=== PATIENT | male | born 1985 | race Asian ===

== ENCOUNTER 2020-03-09 08:52 | Emergency (ER) | payer BC ==
[~2020-03-09] VITALS: Ht 175.3 cm; Wt 89.8 kg
[~2020-03-09 08:52] MED LIST: COL100 PO; NORCO1 TA1 PO
[2020-03-09 08:59] VITALS: Ht 175.3 cm; Wt 89.8 kg
[2020-03-09 10:06] LABS: BASOPHIL % 0.3 % (0-2); CALCIUM 9.2 mg/dL (8.5-10.1); CARBON DIOXIDE 31.3 mmol/L (21-32); CHLORIDE SERUM 103 mmol/L (98-107); CREATININE SERUM 1.1 mg/dL (0.7-1.3); GFR1 > 60 mL/min; GLUCOSE SERUM 85 mg/dL (74-106); PLATELET COUNT 263 x10^3mcL (130-400); POTASSIUM SERUM 3.8 mmol/L (3.5-5.1); RED CELL DISTRIBUTION WIDTH 13.1 % (11.5-14.5); SODIUM SERUM 138 mmol/L (136-145)
[2020-03-09 10:10] LABS: ALBUMIN 3.7 g/dL (3.4-5.0); ALKALINE PHOSPHATASE 93 U/L (46-116); ALT/SGPT 45 U/L (16-63); AST/SGOT 24 U/L (15-37); BILIRUBIN TOTAL 0.9 mg/dL (0.20-1.00); TOTAL PROTEIN, SERUM 7.6 g/dL (6.4-8.2)
[2020-03-09 10:18] LABS: microscopic required? NO
[2020-03-09 10:25] LABS: UA SPECIFIC GRAVITY <=1.005 (1.005-1.035); urine erythrocyte NEGATIVE (NEGATIVE)
[2020-03-09 11:32] VITALS: BP 117/72
== END 2020-03-09 11:32 | disposition home or self-care (01) ==
LOC: ED 08:52
PROVIDERS: Emergency Medicine
DX: L03.317 Cellulitis of buttock (principal); Z88.6 Allergy status to analgesic agent
CPT/HCPCS: 90715; J0690; J2270; J2405; J7030; Q9967